=== PATIENT | male | born 1965 | race Caucasian/White ===

== ENCOUNTER → 2017-12-16 | Outpatient (CLI) | payer OTHER | LOC: M LAB 14:28 | DX: Z01.818 Encounter for other preprocedural examination (principal); S52.291D Other fracture of shaft of right ulna, subsequent encounter for closed fracture with routine healing; S52.391D Other fracture of shaft of radius, right arm, subsequent encounter for closed fracture with routine healing; Y92.89 Other specified places as the place of occurrence of the external cause; Y93.89 Activity, other specified; X58.XXXD Exposure to other specified factors, subsequent encounter; Y99.8 Other external cause status | CPT/HCPCS: 93005 ==